=== PATIENT | male | born 1960 | race Caucasian/White ===

== ENCOUNTER 2019-01-17 05:50 | Day surgery (SDC) | payer OTHER ==
[~2019-01-17] VITALS: Ht 175.3 cm; Wt 94.5 kg
[2019-01-17] MEDS ORDERED: LIDOCAINE/PF 2% 5 ML VIAL IM ONE (05:51)
[2019-01-17] MEDS ORDERED: PROPOFOL 1% 20 ML VIAL IVP ONE (05:51)
[2019-01-17] MEDS ORDERED: SODIUM CHLORIDE 0.9% 1,000 ML IV ONE ×2 (05:54→06:00)
[2019-01-17] MEDS ORDERED: AMLO5TAB9 PO (09:07)
[2019-01-17] MEDS ORDERED: LISI-662 PO (09:07)
[2019-01-17] MEDS ORDERED: HYDR25TA PO (09:07)
== END 2019-01-17 09:45 | disposition home or self-care (01) ==
LOC: SURGERY 05:50
PROVIDERS: ATTEND Internal Medicine Gastroenterology
DX: Z12.11 Encounter for screening for malignant neoplasm of colon (principal); D12.5 Benign neoplasm of sigmoid colon; K57.30 Diverticulosis of large intestine without perforation or abscess without bleeding; I10 Essential (primary) hypertension; E78.5 Hyperlipidemia, unspecified; Z87.09 Personal history of other diseases of the respiratory system; Z87.891 Personal history of nicotine dependence; Z79.899 Other long term (current) drug therapy; Z98.890 Other specified postprocedural states
CPT/HCPCS: 45381; 45385; 88305; C1769; J2704; J3490; J7030